=== PATIENT | female | born 1960 | race Caucasian/White ===

== ENCOUNTER 2017-01-08 16:47 | Emergency (ER) | payer OTHER ==
[~2017-01-08] VITALS: Ht 165.1 cm; Wt 78.6 kg
[~2017-01-08 16:47] MED LIST: ALBUTEROL SULF8.5 GM IH; ASPIRIN325 MG PO; ATORVASTATIN CA20 MG PO; COZAAR50 MG PO; DIOVAN80 MG PO; DOXYCYCLINE HY100 MG PO; EFFIENT10 MG PO; LEVAQUIN500 MG PO; LISINOPRIL10 MG PO; MEDROL DOSEPAK4 MG PO; METOPROLOL SUCC25 MG PO; PEPCID20 MG PO; PROVENTIL2.5 MG/3 M IH; VIBRAMYCIN100 MG
[2017-01-08 18:39] VITALS: BP 158/70
== END 2017-01-08 18:40 | disposition home or self-care (01) ==
LOC: EME 16:47
DX: S09.90XA Unspecified injury of head, initial encounter (principal); V49.40XA Driver injured in collision with unspecified motor vehicles in traffic accident, initial encounter; I10 Essential (primary) hypertension; Z87.891 Personal history of nicotine dependence; Z85.828 Personal history of other malignant neoplasm of skin
CPT/HCPCS: 70450; 99281; 99284

== ENCOUNTER 2017-03-12 05:00 | Emergency (ER) | payer OTHER ==
[~2017-03-12] VITALS: Ht 165.1 cm; Wt 78.7 kg
[2017-03-12 05:51] LABS: HEMATOCRIT 42.5 % (36.0-46.0); MCH 31.5 PG (29.0-34.0); MCHC 32.7 G/DL (30.0-36.0); MCV 96.4 FL (83-99); MEAN PLAT.VOLUME 11.5 uM^3 (9.5-12.4); PLATELET COUNT 203 K/uL (156-360); RBC DIS.WIDTH-CV 12.8 % (11.8-14.6); RBC DIS.WIDTH-SD 45.4 % (39-53); RED BLOOD COUNT 4.41 M/uL (3.80-5.20); WHITE BLOOD COUNT 9.3 K/uL (4.1-10.2)
[2017-03-12 06:55] LABS: ANION GAP 9 MEQ/L (2-14); CHLORIDE 106 MEQ/L (99-109); SAMPLE HEMOLYSIS CHECK 0; SAMPLE ICTERIC CHECK 0; SAMPLE LIPEMIA CHECK 0; SODIUM 144 MEQ/L (136-147)
[2017-03-12 07:01] LABS: GFR ESTIMATE (CALCULATED) > 59 mL/min/; GLUCOSE 91 mg/dL (70-99); UREA NITROGEN (BUN) 13 mg/dL (9-23)
[2017-03-12 07:39] LABS: INFLUENZA A VIRAL ANTIGEN NEGATIVE; INFLUENZA B VIRAL ANTIGEN NEGATIVE
[2017-03-12 08:21] VITALS: BP 179/86
== END 2017-03-12 08:21 | disposition home or self-care (01) ==
LOC: EME 05:00
PROVIDERS: Emergency Medicine
DX: J20.9 Acute bronchitis, unspecified (principal); J02.9 Acute pharyngitis, unspecified; J44.9 Chronic obstructive pulmonary disease, unspecified; I10 Essential (primary) hypertension; Z87.891 Personal history of nicotine dependence
CPT/HCPCS: 71020; 80048; 85027; 87502; 94640; 99281; 99284

== ENCOUNTER → 2017-06-24 | Outpatient (CLI) | payer OTHER | END | disposition home or self-care (01) | LOC: RAD 13:00 | DX: J98.4 Other disorders of lung (principal) | CPT/HCPCS: 71275 ==